=== PATIENT | female | born 2000 | race Caucasian/White ===

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

== ENCOUNTER 2020-01-30 10:31 | Emergency (ER) | payer BC, MEDICAID ==
[~2020-01-30] VITALS: Ht 157.5 cm; Wt 63.0 kg
[~2020-01-30 10:31] MED LIST changes: +HYDR12.55 PO
[2020-01-30 11:07] VITALS: BP 145/85
[2020-01-30 11:52] LABS: BASOPHILS % (AUTO) 0.5 % (0-1); EOSINOPHILS % (AUTO) 0.9 % (0-6); HEMATOCRIT 39.1 % (35.0-45.0); HEMOGLOBIN 12.9 g/dl (12.0-16.0); LYMPHOCYTES # (AUTO) 1.7 X10'3 (1.1-4.8); LYMPHOCYTES % (AUTO) 31.6 % (21-51); MEAN CORPUSCULAR HEMOGLOBIN 29.7 PG (27.0-31.0); MEAN CORPUSCULAR VOLUME 89.8 FL (78-98); MEAN PLATELET VOLUME 8.4 FL (7.4-10.4); MONOCYTES # (AUTO) 0.4 X10'3 (0-0.9); MONOCYTES % (AUTO) 6.5 % (2-12); NEUTROPHILS # (AUTO) 3.3 X10'3 (1.8-7.7); NEUTROPHILS % (AUTO) 60.5 % (42-75); PLATELET COUNT 263 X10'3 (140-440); RED BLOOD COUNT 4.35 X10'6 (4.20-5.60); RED CELL DISTRIBUTION WIDTH 14.6 % (11.5-14.5); WHITE BLOOD COUNT 5.4 X10'3 (4.5-11.0)
[2020-01-30 11:58] LABS: ALANINE AMINOTRANSFERASE 23 U/L (12-78); ALBUMIN 4.2 G/DL (3.4-5.0); ALBUMIN/GLOBULIN RATIO 1.2 (1.1-1.5); ALKALINE PHOSPHATASE 54 IU/L (20-180); ANION GAP 8 (8-16); ASPARTATE AMINO TRANSFERASE 17 U/L (10-37); BILIRUBIN,TOTAL 0.6 MG/DL (0.1-1.0); BLOOD UREA NITROGEN 7 MG/DL (7-18); BUN/CREATININE RATIO 10.4 (6.6-38.0); CALCIUM 9.1 MG/DL (8.5-10.1); CHLORIDE 103 MMOL/L (99-107); CREATININE 0.67 MG/DL (0.40-0.90); GLUCOSE 93 MG/DL (70-104); POTASSIUM 3.7 MMOL/L (3.5-5.1); SODIUM 139 MMOL/L (135-145); TOTAL CARBON DIOXIDE 28.2 MMOL/L (24-32); TOTAL PROTEIN 7.6 G/DL (6.4-8.2); eGFR > 90 ML/MIN
--- NOTE | 2020-01-30 12:25 | NUR ---
pt left without dc instructions per registration she did not want to wait
== END 2020-01-30 12:27 | disposition home or self-care (01) ==
LOC: ER 10:32
DX: I10 Essential (primary) hypertension (principal); R53.83 Other fatigue; Z79.2 Long term (current) use of antibiotics; Z79.899 Other long term (current) drug therapy
CPT/HCPCS: 36415; 80053; 85025; 93005; 99284

== ENCOUNTER 2020-07-29 09:05 | Emergency (ER) | payer BC, MEDICAID ==
[~2020-07-29] VITALS: Ht 157.5 cm; Wt 56.8 kg
[~2020-07-29 09:05] MED LIST changes: -HCTZ25T PO; +HYDR25TA5 PO; +LISI10TA27 PO; -LISI10TA4 PO
[2020-07-29] MEDS ORDERED: aspirin 81mg tab.chew PO ONE (09:25)
[2020-07-29 10:09] LABS: BASOPHILS % (AUTO) 0.8 % (0-1); EOSINOPHILS # (AUTO) 0.1 X10'3 (0-0.9); EOSINOPHILS % (AUTO) 1.5 % (0-6); HEMATOCRIT 40.4 % (35.0-45.0); HEMOGLOBIN 13.5 g/dl (12.0-16.0); LYMPHOCYTES # (AUTO) 1.5 X10'3 (1.1-4.8); LYMPHOCYTES % (AUTO) 34.6 % (21-51); MEAN CORPUSCULAR HEMOGLOBIN 31.2 PG (27.0-31.0); MEAN CORPUSCULAR HGB CONC 33.5 g/dL (33.0-36.5); MEAN CORPUSCULAR VOLUME 93.4 FL (78-98); MEAN PLATELET VOLUME 8.5 FL (7.4-10.4); MONOCYTES # (AUTO) 0.3 X10'3 (0-0.9); MONOCYTES % (AUTO) 7.6 % (2-12); NEUTROPHILS # (AUTO) 2.4 X10'3 (1.8-7.7); NEUTROPHILS % (AUTO) 55.5 % (42-75); PLATELET COUNT 230 X10'3 (140-440); RED BLOOD COUNT 4.32 X10'6 (4.20-5.60); RED CELL DISTRIBUTION WIDTH 13.1 % (11.5-14.5); WHITE BLOOD COUNT 4.3 X10'3 (4.5-11.0)
[2020-07-29 10:32] VITALS: BP 126/82
[2020-07-29 10:42] LABS: ALANINE AMINOTRANSFERASE 24 U/L (12-78); ALBUMIN/GLOBULIN RATIO 1.2 (1.1-1.5); ALKALINE PHOSPHATASE 52 IU/L (20-180); ANION GAP 10 (8-16); ASPARTATE AMINO TRANSFERASE 17 U/L (10-37); BILIRUBIN,TOTAL 0.3 MG/DL (0.1-1.0); BLOOD UREA NITROGEN 10 MG/DL (7-18); BUN/CREATININE RATIO 19.6 (6.6-38.0); CALCIUM 8.8 MG/DL (8.5-10.1); CHLORIDE 107 MMOL/L (99-107); CREATININE 0.51 MG/DL (0.40-0.90); GLUCOSE 91 MG/DL (70-104); MAGNESIUM 2.2 MG/DL (1.5-2.4); POTASSIUM 3.9 MMOL/L (3.5-5.1); SODIUM 142 MMOL/L (135-145); TOTAL CARBON DIOXIDE 24.8 MMOL/L (24-32); TOTAL PROTEIN 7.4 G/DL (6.4-8.2); eGFR > 90 ML/MIN
== END 2020-07-29 11:22 | disposition home or self-care (01) ==
LOC: EEVIPCON 09:06 → ER 09:06
DX: I10 Essential (primary) hypertension (principal); R07.89 Other chest pain; R06.02 Shortness of breath; Z79.899 Other long term (current) drug therapy
CPT/HCPCS: 36415; 71045; 80053; 83735; 83880; 84484; 85025; 93005; 99285

== ENCOUNTER 2021-01-10 15:13 | Emergency (ER) | payer BC, MEDICAID ==
[~2021-01-10] VITALS: Ht 154.9 cm; Wt 59.1 kg
[~2021-01-10 15:13] MED LIST changes: +IBUP-2766 PO; -IBUP100O20 PO
[2021-01-10 15:31] VITALS: BP 130/88
== END 2021-01-10 22:38 | disposition left against medical advice (07) ==
LOC: ER 15:14
DX: Z53.21 Procedure and treatment not carried out due to patient leaving prior to being seen by health care provider (principal)
CPT/HCPCS: 93005

== ENCOUNTER 2021-04-17 12:42 | Outpatient (CLI) | payer BC, MEDICAID ==
[2021-04-17] VITALS (9 sets, daily range): BP systolic 88–148; BP diastolic 41–92
== END 2021-04-17 23:59 | disposition home or self-care (01) ==
LOC: CARD DIAG 12:42
PROVIDERS: ATTEND Internal Medicine Interventional Cardiology
DX: R00.0 Tachycardia, unspecified (principal)
CPT/HCPCS: 93660

== ENCOUNTER 2021-05-23 12:24 | Emergency (ER) | payer BC, MEDICAID ==
[~2021-05-23] VITALS: Ht 154.9 cm; Wt 53.6 kg
[2021-05-23 14:14] LABS: BASOPHILS % (AUTO) 0.4 % (0-1); EOSINOPHILS % (AUTO) 0.4 % (0-6); HEMATOCRIT 33.2 % (35.0-45.0); HEMOGLOBIN 11.5 g/dl (12.0-16.0); LYMPHOCYTES # (AUTO) 1.3 X10'3 (1.1-4.8); LYMPHOCYTES % (AUTO) 13.7 % (21-51); MEAN CORPUSCULAR HEMOGLOBIN 31.4 PG (27.0-31.0); MEAN CORPUSCULAR HGB CONC 34.7 g/dL (33.0-36.5); MEAN CORPUSCULAR VOLUME 90.3 FL (78-98); MEAN PLATELET VOLUME 8.1 FL (7.4-10.4); MONOCYTES # (AUTO) 0.4 X10'3 (0-0.9); MONOCYTES % (AUTO) 4.3 % (2-12); NEUTROPHILS # (AUTO) 7.8 X10'3 (1.8-7.7); NEUTROPHILS % (AUTO) 81.2 % (42-75); PLATELET COUNT 214 X10'3 (140-440); RED BLOOD COUNT 3.68 X10'6 (4.20-5.60); RED CELL DISTRIBUTION WIDTH 13.1 % (11.5-14.5); WHITE BLOOD COUNT 9.6 X10'3 (4.5-11.0)
[2021-05-23 14:27] LABS: ALANINE AMINOTRANSFERASE 16 U/L (12-78); ALBUMIN 3.8 G/DL (3.4-5.0); ALBUMIN/GLOBULIN RATIO 1.2 (1.1-1.5); ALKALINE PHOSPHATASE 38 IU/L (20-180); ANION GAP 4 (8-16); ASPARTATE AMINO TRANSFERASE 12 U/L (10-37); BILIRUBIN,TOTAL 0.3 MG/DL (0.1-1.0); BLOOD UREA NITROGEN 13 MG/DL (7-18); BUN/CREATININE RATIO 23.2 (6.6-38.0); CALCIUM 8.6 MG/DL (8.5-10.1); CHLORIDE 108 MMOL/L (99-107); CREATININE 0.56 MG/DL (0.40-0.90); GLUCOSE 101 MG/DL (70-104); LIPASE 148 U/L (73-393); POTASSIUM 3.6 MMOL/L (3.5-5.1); SODIUM 139 MMOL/L (135-145); TOTAL CARBON DIOXIDE 26.9 MMOL/L (24-32); TOTAL PROTEIN 6.9 G/DL (6.4-8.2); eGFR > 90 ML/MIN
[2021-05-23 16:04] LABS: CLARITY,URINE SLIGHTLY CLOUDY (Clear); COLOR,URINE YELLOW (Yellow); GLUCOSE, URINE NEGATIVE (Neg); KETONES,URINE TRACE mg/dl (Neg); LEUKOCYTE ESTERASE ,URINE NEGATIVE (Neg); NITRITES, URINE NEGATIVE (Neg); OCCULT BLOOD,URINE NEGATIVE (Neg); PH,URINE 6.5 (4.8-8.0); PROTEIN,URINE NEGATIVE (Neg); URINE HCG NEGATIVE (NEG)
[2021-05-23 16:05] LABS: UA COLLECTION TYPE CLN CATCH MIDSTREAM
[2021-05-23 16:14] LABS: AMORPHOUS URATES 1+; BACTERIA,URINE FEW /HPF (Neg); MUCUS STRANDS MANY /LPF (Neg); RBC,URINE 0-2 /HPF (0-2); SQUAMOUS EPITHELIAL CELL,UR MODERATE /LPF (FEW); WBC,URINE 0-4 /HPF (0-4)
[2021-05-23] MEDS ORDERED: iohexol 300mg/ml 100ml inj. ONE (16:15)
[2021-05-23 17:43] VITALS: BP 109/78
== END 2021-05-23 17:45 | disposition home or self-care (01) ==
LOC: ER 12:25
DX: R10.31 Right lower quadrant pain (principal); Q79.60 Ehlers-Danlos syndrome, unspecified
CPT/HCPCS: 36415; 74177; 80053; 81001; 81025; 83690; 85025; 99285; Q9967

== ENCOUNTER 2021-08-28 17:07 | Emergency (ER) | payer BC, MEDICAID ==
[~2021-08-28] VITALS: Ht 154.9 cm; Wt 50.0 kg
[2021-08-28 17:27] VITALS: BP_DIAS 99
[2021-08-28] MEDS ORDERED: normal saline 1000ML IV soln IVB ONE (17:35)
[2021-08-28] MEDS ORDERED: metoprolol tartrate 1mg/ml inj IV ONE (17:40)
[2021-08-28 18:01] LABS: BASOPHILS % (AUTO) 0.5 % (0-1); EOSINOPHILS # (AUTO) 0.1 X10'3 (0-0.9); EOSINOPHILS % (AUTO) 1.2 % (0-6); HEMATOCRIT 39.4 % (35.0-45.0); HEMOGLOBIN 13.5 g/dl (12.0-16.0); LYMPHOCYTES # (AUTO) 2.2 X10'3 (1.1-4.8); LYMPHOCYTES % (AUTO) 29.2 % (21-51); MEAN CORPUSCULAR HEMOGLOBIN 31.2 PG (27.0-31.0); MEAN CORPUSCULAR HGB CONC 34.2 g/dL (33.0-36.5); MEAN CORPUSCULAR VOLUME 91.2 FL (78-98); MEAN PLATELET VOLUME 8.2 FL (7.4-10.4); MONOCYTES # (AUTO) 0.6 X10'3 (0-0.9); MONOCYTES % (AUTO) 7.4 % (2-12); NEUTROPHILS # (AUTO) 4.6 X10'3 (1.8-7.7); NEUTROPHILS % (AUTO) 61.7 % (42-75); PLATELET COUNT 222 X10'3 (140-440); RED BLOOD COUNT 4.32 X10'6 (4.20-5.60); RED CELL DISTRIBUTION WIDTH 13.6 % (11.5-14.5); WHITE BLOOD COUNT 7.5 X10'3 (4.5-11.0)
[2021-08-28] MEDS ORDERED: LOP25T PO (18:14)
[2021-08-28 18:17] LABS: ALANINE AMINOTRANSFERASE 29 U/L (12-78); ALBUMIN 4.4 G/DL (3.4-5.0); ALBUMIN/GLOBULIN RATIO 1.2 (1.1-1.5); ALKALINE PHOSPHATASE 39 IU/L (20-180); ANION GAP 7 (8-16); ASPARTATE AMINO TRANSFERASE 17 U/L (10-37); BILIRUBIN,TOTAL 0.3 MG/DL (0.1-1.0); BLOOD UREA NITROGEN 13 MG/DL (7-18); BUN/CREATININE RATIO 21.7 (6.6-38.0); CALCIUM 9.6 MG/DL (8.5-10.1); CHLORIDE 104 MMOL/L (99-107); GLUCOSE 101 MG/DL (70-104); POTASSIUM 3.3 MMOL/L (3.5-5.1); SODIUM 138 MMOL/L (135-145); TOTAL CARBON DIOXIDE 27.1 MMOL/L (24-32); eGFR > 90 ML/MIN
[2021-08-28 18:24] LABS: D-DIMER < 0.19 MG/L FEU (0-0.50)
[2021-08-28 19:19] VITALS: BP_SYST 123
== END 2021-08-28 19:29 | disposition home or self-care (01) ==
LOC: ER 17:08
DX: I10 Essential (primary) hypertension (principal); R00.2 Palpitations; R00.0 Tachycardia, unspecified; A18.01 Tuberculosis of spine; F12.90 Cannabis use, unspecified, uncomplicated; Z79.899 Other long term (current) drug therapy
CPT/HCPCS: 36415; 71045; 80053; 84443; 84484; 85025; 85379; 93005; 99285; J7030

== ENCOUNTER 2021-11-09 10:29 | Emergency (ER) | payer BC, MEDICAID ==
[~2021-11-09 10:29] MED LIST changes: +LOP25T PO
== END 2021-11-09 12:52 | disposition left against medical advice (07) ==
LOC: ER 10:31
DX: Z11.52 Encounter for screening for COVID-19 (principal); Z53.21 Procedure and treatment not carried out due to patient leaving prior to being seen by health care provider

== ENCOUNTER 2021-11-20 20:19 | Emergency (ER) | payer BC, MEDICAID ==
[~2021-11-20] VITALS: Ht 154.9 cm; Wt 52.3 kg
[2021-11-20 20:26] VITALS: BP 150/90
--- NOTE | 2021-11-20 21:29 | NUR ---
PICC LINE DRESSING CHANGE. PT TOLERATED DRESSING CHANGE WITH NO VERBAL COMPLAINTS OR VISUAL DISTRESS
== END 2021-11-20 21:31 | disposition home or self-care (01) ==
LOC: ER 20:19
DX: Z48.00 Encounter for change or removal of nonsurgical wound dressing (principal); F12.90 Cannabis use, unspecified, uncomplicated; Z79.899 Other long term (current) drug therapy
CPT/HCPCS: 99282; A6258

== ENCOUNTER 2022-01-02 21:45 | Emergency (ER) | payer BC, MEDICAID ==
[~2022-01-02] VITALS: Ht 157.5 cm; Wt 50.0 kg
[2022-01-02 22:07] VITALS: BP 120/85
== END 2022-01-03 05:28 | disposition left against medical advice (07) ==
LOC: ER 21:46
DX: T83.098A Other mechanical complication of other urinary catheter, initial encounter (principal); Z53.21 Procedure and treatment not carried out due to patient leaving prior to being seen by health care provider

== ENCOUNTER 2022-01-03 09:06 | Emergency (ER) | payer BC, MEDICAID ==
[~2022-01-03] VITALS: Ht 154.9 cm; Wt 50.0 kg
[2022-01-03 09:15] VITALS: BP 130/84
--- NOTE | 2022-01-03 12:40 | NUR ---
PICC LINE DSG CHANGED. PT OLD DSG REMOVED. SKIN RED AND RAISED WHERE OLD DSG WAS. SITE CLEANED WITH CASTILE WHIPES, ALLOWED TO DRY, INSERT SITE AND LINE CLEANED WITH CHG X2 ALLOWED TO DRY. BIO PATCH PLACED NEW TEGADERM PLACED ALL ABOVE DONE UNDER [employer] TE[employer]. PT JOSELUIS WELL ENCOURAGED TO CALL [facility] ON WEDNESDAY. PT TOOK PICS WHILE DSG OFF TO SHOW PMD AND [facility].
== END 2022-01-03 12:43 | disposition home or self-care (01) ==
LOC: ER 09:07
DX: T82.898A Other specified complication of vascular prosthetic devices, implants and grafts, initial encounter (principal); F12.10 Cannabis abuse, uncomplicated; Z48.00 Encounter for change or removal of nonsurgical wound dressing; Z88.0 Allergy status to penicillin; Z79.899 Other long term (current) drug therapy; Z79.1 Long term (current) use of non-steroidal anti-inflammatories (NSAID)
CPT/HCPCS: 99281

== ENCOUNTER 2022-04-29 15:29 | Emergency (ER) | payer BC, MEDICAID ==
[~2022-04-29] VITALS: Ht 154.9 cm; Wt 50.0 kg
[2022-04-29 15:43] VITALS: BP 128/82
--- NOTE | 2022-04-29 15:58 | NUR ---
PT REFUSED LAB DRAWS INSISTING THAT THEY BE DRAWN FROM HER CENTRAL LINE WHICH WAS NOT PLACED AT THIS FACILITY. THIS RN REFUSED PER FACILITY POLICY. PT LEFT AMA AND WOULD NOT WAIT FOR PAPERWORK. CHARGE NURSE NOTIFIED.
[2022-04-29 16:19] LABS: CLARITY,URINE SLIGHTLY CLOUDY (Clear); COLOR,URINE YELLOW (Yellow); GLUCOSE, URINE NEGATIVE (Neg); KETONES,URINE NEGATIVE (Neg); LEUKOCYTE ESTERASE ,URINE TRACE (Neg); NITRITES, URINE NEGATIVE (Neg); OCCULT BLOOD,URINE NEGATIVE (Neg); PROTEIN,URINE NEGATIVE (Neg); UROBILINOGEN,URINE 0.2 E.U/dL (0.2-1.0)
[2022-04-29 16:41] LABS: UA COLLECTION TYPE CLN CATCH MIDSTREAM
[2022-04-29 16:59] LABS: MUCUS STRANDS MANY /LPF (Neg); SQUAMOUS EPITHELIAL CELL,UR MANY /LPF (FEW)
--- NOTE | 2022-04-29 17:00 | NUR ---
LAB CALLED REGARDING URINE SPECIME: REJECTED FOR CULTURE PT LWOBS
[2022-04-29 17:01] LABS: TRANSITIONAL EPI CELLS,URINE MODERATE /HPF
[2022-04-29 17:02] LABS: BACTERIA,URINE 1+ /HPF (Neg); RBC,URINE 0-2 /HPF (0-2)
== END 2022-04-29 16:00 | disposition left against medical advice (07) ==
LOC: ER 15:30
DX: R19.7 Diarrhea, unspecified (principal); R11.10 Vomiting, unspecified; K92.1 Melena; Z53.21 Procedure and treatment not carried out due to patient leaving prior to being seen by health care provider
CPT/HCPCS: 81001

== ENCOUNTER 2024-12-20 09:10 | Emergency (ER) | payer BC, MEDICAID ==
[~2024-12-20] VITALS: Ht 154.9 cm; Wt 75.0 kg
[2024-12-20 09:29] VITALS: TEMP 96.8
--- NOTE | 2024-12-20 09:59 | Physician Documentation ---
History of Present Illness ~ Chief Complaint: Medication Request Stated Complaint: BREAST PAIN Time Seen by MD: 09:47 Primary Medical Doctor: CYNTHIA SMITH 24-year-old female with a history of mastitis presents to the ED with a complaint of right breast pain and armpit pain. States she felt nauseous and generally unwell yesterday evening. She reports using warm compresses and ut ilize all the modalities to prevent mastitis that she learned at . Denies any drug allergies Day of Onset: Dec 20, 2024 Tetanus within 5 years?: No Medication Reconciliation Allergies: Uncoded Allergies: PENCILLIN (Allergy, Mild, ITCH, 01/02/22) Scheduled Albuterol Sulfate (Ventolin Hfa), 2 PUFFS INH Q4HPRN Bacitracin/Pramoxine/Aloe Vera (Bacitracin Plus Ointment), 28 GM TP QID Cephalexin*Monohydrate* (Keflex*), 1 CAP PO QID Hydrochlorothiazide (Hydrochlorothiazide), 1 TAB PO DAILY Hydrochlorothiazide (Hydrochlorothiazide), 1 TAB PO DAILY Ibuprofen 100MG/5ML Susp* (Motrin 100 MG/5ML Susp.*), 15 ML PO Q6H Lisinopril (Lisinopril), 1 TAB PO DAILY Metoprolol Tartrate* (Lopressor tablet*), 1 TAB PO Q12H Penicillin V Potassium 250MG/5ML Susp* (Penicillin VK 250MG/5ML Susp*), 5 ML PO TID Miscellaneous Medications Dexmethylphenidate HCl (Focalin), (Reported) Past Medical History Past Medical History: *GI/HEPATOBILIARY*, *PSYCH* Past Surgical History: noncontributory Alcohol Use: None Drug Use: marijuana Lives with: Family Lives In: Home Occupation: student Review of Systems All Other Systems at this time: Reviewed and Negative ROS As stated above in the HPI, otherwise all systems are reviewed and negative. Physical Exam Vital Signs: Temperature: 96.8, Source: Temporal, Heart Rate: 121, Respiratory Rate: 18, BP: 152/98, Pulse Oximetry: 98, Weight: 75.000 General Appearance General: Alert, no apparent distress. Respiratory: Lungs clear, no respiratory distress. Chest: No accessory muscle use. tender to palpation left axillary Psychiatric: Normal mood and affect. Skin: Normal color, warm and dry. No edema, no ecchymosis. Progress Results/Orders Results/Orders Completed Orders - BENITA KRAFT NP Cephalexin Capsule (Keflex Capsule) (12/20/24 10:00) Medications Received in ER Medications (Trade) Dose Ordered Sig/Jada Route PRN Reason Start Time Stop Time Status Last Admin Dose Admin (Keflex capsule) 500 mg ONCE ONCE PO 12/20/24 10:00 12/20/24 10:01 DC 12/20/24 10:05 500 MG Vital Signs 12/20/24 12/20/24 12/20/24 09:29 10:46 10:47 Temp 96.8 Pulse 121 98 98 Resp 18 15 15 B/P (MAP) 152/98 152/98 (116) 152/98 Pulse Ox 98 98 98 Medical Decision Making Findings Treating empirically for suspected mastitis. Going to discharge patient on oral antibiotics Differential Dx:Considerations: Include: Breast abscess, Breast engorgement, Breast mass, Cancer, Cellulitis, Fibrocystic disease, Lymphagitis, Mastitis, Other Departure Disposition: 01 HOME / SELF CARE / HOMELESS Impression: Primary Impression: Mastitis Discharge Instructions: Mastitis, [id number] Referrals: NO PRIMARY CARE PROVIDER (PCP) Prescriptions Cephalexin*Monohydrate* (Keflex*) 500 Mg Capsule 1 CAP PO QID, #40 CAP Prov: BENITA KRAFT STITCHDOWN TOE FORMER 12/20/24 Signature Scribe Signature: janel Attestation: Scribed for Benita [employer] by Benita Kraft - [place] . 12/20/24 17:14 BENITA KRAFT STITCHDOWN TOE FORMER Dec 20, 2024 09:58
[2024-12-20] MEDS ORDERED: CEPH-585 PO (10:40)
[2024-12-20 10:47] VITALS: BP 152/98; PULSE 98; RESP 15; O2SAT 98
== END 2024-12-20 10:48 | disposition home or self-care (01) ==
LOC: ER 09:10
DX: N61.0 Mastitis without abscess (principal)
CPT/HCPCS: 99283; A6449